=== PATIENT | female | born 1995 | race Caucasian/White ===

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

== ENCOUNTER 2017-09-21 14:09 | Emergency (ER) | payer OTHER ==
[2017-09-21 14:57] VITALS: BP 116/77
--- NOTE | 2017-09-21 15:05 | UC ---
Complaint Female HPI - HPI Summary HPI Summary: 21 y/o female presents to the urgent care c/o itchy vaginal discharge since 09/14. PT reports her PCP RX keflex and Nystatin cream to an UTI and yeast infection. Symptoms did not improve. So he changed ABX for Bactrim PO. She still taking it. However, symptoms still present and vaginal discharge has worsen with a lot itchiness and mild pelvic pain. Pt denies fever, lower back pain, abdominal pain, N/V/D, hematuria. LMP: 09/02/2017 with regular menstrual cycles. - History Of Current Complaint Chief Complaint: UCGU Stated Complaint: PERSONAL Time Seen by Provider: 09/21/17 14:50 Hx Obtained From: Patient Hx Last Menstrual Period: 09/02/17 ?: No Onset/Duration: Gradual Onset, Lasting Weeks, Still Present, Worse Since - 3 days Timing: Constant Severity Initially: Mild Severity Currently: Moderate Pain Intensity: 5 Pain Scale Used: 0-10 Numeric Character: Burning Aggravating Factor(s): Urination Alleviating Factor(s): Nothing Associated Signs And Symptoms: Positive: Vaginal Discharge. Negative: Fever, Back Pain, Genital Swelling, Genital Blisters Related Hx: - 0, Para - 0 - Risk Factors Ectopic Risk Factor: Negative Ovarian Torsion Risk Factor: Negative, Reproductive Age - Allergies/Home Medications Allergies/Adverse Reactions: Allergies Allergy/AdvReac Type Severity Reaction Status Date / Time No Known Allergies Allergy Verified 09/21/17 14:57 Home Medications: Home Medications Sulfamethox/Trimethoprim DS* [Bactrim DS 800/160 TAB*] 1 tab PO BID 09/21/17 [ History Confirmed 09/21/17] PMH/Surg Hx/FS Hx/Imm Hx Previously Healthy: Yes Respiratory History: Asthma - Surgical History Surgical History: Yes Surgery Procedure, Year, and Place: EAR TUBES X3. left knee 2016 - Family History Known Family History: Positive: Diabetes - Social History Occupation: Employed Full-time Lives: With Family Alcohol Use: None Substance Use Type: None Smoking Status (MU): Never Smoked Tobacco - Immunization History Most Recent Influenza Vaccination: n/a Vaccination Up to Date: Yes Review of Systems Constitutional: Negative Skin: Negative Eyes: Negative ENT: Negative Respiratory: Negative Cardiovascular: Negative Gastrointestinal: Negative Genitourinary: Dysuria, Frequency, Vaginal/Penile Itching, Vaginal/Penile Discharge, Other - mild pelvic pain Motor: Negative Neurovascular: Negative Musculoskeletal: Negative Neurological: Negative Psychological: Negative Is Patient Immunocompromised?: No All Other Systems Reviewed And Are Negative: Yes Physical Exam Triage Information Reviewed: Yes Vital Signs: Initial Vital Signs Temp 98.8 F 09/21/17 14:48 Pulse 86 09/21/17 14:48 Resp 18 09/21/17 14:48 BP 116/77 09/21/17 14:48 Pulse Ox 100 09/21/17 14:48 - Additional Comments Vital signs: reviewed General:well developed, well nourished female sitting in the examining table w/ o any aparent distress. Head: Normocephalic, no lesions. Eyes: PERRLA, EOM's full, conjunctiva clear, fundi grossly normal. Ears: EAC's clear, TM's normal. Nose: Mucosa normal, no obstruction. Throat: Clear, no exudates, no lesions. Neck: Supple, no masses, no thyromegaly, no bruits. Chest: Lungs clear, no rales, no rhonchi, no wheezes. Heart: RR, no murmurs, no rubs, no gallops. Abdomen: Soft, no tenderness, no masses, BS normal. : Normal, no lesions, no discharge, no hernias noted. Pelvic: I was assited by Nurse Pippa. External genitalia within normal limits. There is no lesions there is no masses noted. Speculum exam: The vaginal sherstha are within normal limits w/ moderate white creamy vaginal discharge, no the lesions or rashes. The cervix is closed with no lesions or masses. There is no CMT's, and no adnexal masses. Sample sent Lab for affirm and G/C and trichomonas Rectal: No lesions, no hemorrhoids, Back: Normal curvature, no tenderness. Extremities: FROM, no deformities, no edema, no erythema. Neuro: Physiological, no localizing findings. Skin: Normal, no rashes, no lesions noted. Complaint Female Dx - Course Course Of Treatment: 21 y/o female presents to the urgent care c/o itchy vaginal discharge since 09/14/2017. PT reports her PCP RX keflex and Nystatin cream to an UTI and yeast infection. Symptoms did not improve. So he changed ABX for Bactrim PO. She still taking it. However, symptoms still present and vaginal discharge has worsen with a lot itchiness and mild pelvic pain. Pt denies fever, lower back pain, abdominal pain, N/V/D, hematuria. LMP: 09/02/2017 with regular menstrual cycles.Hx obtained. Pt with Bacterial vaginosis and Vulvovaginal candidiasis pelvic examination. Pt Rx Metronidazole vaginal cream and Fluconazole PO . UA ordered, result:trace leukoesteraces. test: negative. Pt educated on STD's. Advised to f/u with THREAD PULLING MACHINE ATTENDANT for PAP. Specimen were sent to lab to r/o affirm, VALENTINO/belen adboo trichomonas, Advised she will be notified if any abnormal result from lab. Pt understood and agreed with plan of care. - Differential Dx/Diagnosis Differential Diagnosis/HQI/PQRI: Cervicitis, Pelvic Inflammatory Disease, Sexually Transmitted Disease, Ureteral Stone, Urinary Tract Infection, Other - vaginosis Provider Diagnoses: 1- Bacterial vaginosis. 2-Vulvo vaginal candidiasis. 3- Screening for STD's Discharge - Discharge Plan Condition: Stable Disposition: HOME Prescriptions: Fluconazole 150 MG (NF) [Diflucan 150 mg (NF)] 150 mg PO ONCE #1 tab metroNIDAZOLE VAGINAL 0.75%* 1 applic VAGINAL BEDTIME #1 verna Patient Education Materials: Bacterial Vaginosis (ED), Yeast Infection (ED) Referrals: Lorenzo Fishman MD [Primary Care Provider] - 3 Days Additional Instructions: 1-Please f/u with THREAD PULLING MACHINE ATTENDANT or [facility] for a PAP and screening for other STD's 2- Please take medications as directed, and apply Metronidazole vaginal cream as directed 3- Specimen were sent to lab, if anything abnormal you will receive a call from us for further treatment. 4-If not improvement of symptoms please return to the urgent care or f/u with your THREAD PULLING MACHINE ATTENDANT for further treatment
== END 2017-09-21 15:52 | disposition home or self-care (01) ==
LOC: UCCORT 14:09
DX: N76.0 Acute vaginitis (principal); B96.89 Other specified bacterial agents as the cause of diseases classified elsewhere; B37.3 Candidiasis of vulva and vagina; Z11.3 Encounter for screening for infections with a predominantly sexual mode of transmission
CPT/HCPCS: 81003; 84702; 87086; 87480; 87491; 87510; 87591; 87661; 99212; G0463

== ENCOUNTER 2018-03-20 14:00 | Emergency (ER) | payer OTHER ==
[2018-03-20 14:18] VITALS: BP 111/51
--- NOTE | 2018-03-20 14:46 | UC ---
Abdominal Pain Female HPI - HPI Summary HPI Summary: Pt presents with c/o LIN, fatigue and lower abdomen cramping that began yesterday but has since improved. Pt is 25 weeks . denies, vaginal bleeding, fever, chills, nausea or vomiting. Pt states she has not been "drinking enough liquids" - History of Current Complaint Chief Complaint: UCGeneralIllness Stated Complaint: CRAMPING,LIN Time Seen by Provider: 03/20/18 14:13 Hx Obtained From: Patient Hx Last Menstrual Period: 09/02/17 ?: Yes - 25 weeks Onset/Duration: Gradual Onset, Lasting Days, Still Present Severity Initially: Mild Severity Currently: Mild Pain Intensity: 3 Location: Suprapubic Radiates: No Character: Cramping Aggravating Factor(s): Nothing Alleviating Factor(s): Other: - rest Associated Signs and Symptoms: Positive: Negative - Risk Factors Ectopic Risk Factor: Negative Ovarian Torsion Risk Factor: Reproductive Age Allergies/Adverse Reactions: Allergies Allergy/AdvReac Type Severity Reaction Status Date / Time No Known Allergies Allergy Verified 03/20/18 14:11 Home Medications: Home Medications Ibuprofen TAB* [Advil TAB*] 600 mg PO Q6H PRN 03/20/18 [History Confirmed ] PMH/Surg Hx/FS Hx/Imm Hx Previously Healthy: Yes - Surgical History Surgical History: Yes Surgery Procedure, Year, and Place: EAR TUBES X3. left knee 2016 - Family History Known Family History: Positive: Cardiac Disease, Diabetes - Social History Occupation: Employed Full-time Lives: With Family Alcohol Use: None Substance Use Type: None Smoking Status (MU): Never Smoked Tobacco Have You Smoked in the Last Year: No - Immunization History Most Recent Influenza Vaccination: n/a Vaccination Up to Date: Yes Review of Systems Constitutional: Fatigue Skin: Negative Eyes: Negative ENT: Negative Respiratory: Negative Cardiovascular: Negative Gastrointestinal: Abdominal Pain Genitourinary: Negative Motor: Negative Neurovascular: Negative Musculoskeletal: Negative Neurological: Headache Psychological: Negative Is Patient Immunocompromised?: No All Other Systems Reviewed And Are Negative: Yes Physical Exam Triage Information Reviewed: Yes Appearance: Well-Appearing Vital Signs: Initial Vital Signs Temp 99.3 F 03/20/18 14:12 Pulse 94 03/20/18 14:12 Resp 16 03/20/18 14:12 BP 111/51 03/20/18 14:12 Pulse Ox 100 03/20/18 14:12 Vital Signs Reviewed: Yes Eye Exam: Normal Eyes: Positive: Other: - PERRLA ENT Exam: Normal Dental Exam: Normal Neck exam: Normal Respiratory Exam: Normal Respiratory: Positive: No respiratory distress Cardiovascular Exam: Normal Abdomen Description: Positive: Nontender, Other: - heart tones, 149 Musculoskeletal Exam: Normal Neurological Exam: Normal Psychological Exam: Normal Skin Exam: Normal Abd Pain Female Course/Dx - Course Course Of Treatment: I discussed with the patient the need to stay adequately hydrated during . Pt verbalized understanding and agreed to plan of care. - Differential Dx/Diagnosis Differential Diagnosis: , Urinary Tract Infection Provider Diagnoses: -mild dehydration. ear ache. abdomen pain Discharge - Sign-Out/Discharge Documenting (check all that apply): Patient Departure - Discharge Plan Condition: Stable Disposition: HOME Patient Education Materials: Acute Headache (ED), Earache (ED), Abdominal Pain in (ED) Forms: *Gen. Provider Communication Referrals: Yolanda Chowdhury CNM [Certified Nurse Poured Wall Foreman] - If Needed No Primary Care Phys,NOPCP [Primary Care Provider] - - Billing Disposition and Condition Condition: STABLE Disposition: Home
== END 2018-03-20 15:04 | disposition home or self-care (01) ==
LOC: UCCORT 14:00
DX: O26.892 Other specified pregnancy related conditions, second trimester (principal); Z3A.25 25 weeks gestation of pregnancy; E86.0 Dehydration; H92.09 Otalgia, unspecified ear; R10.9 Unspecified abdominal pain
CPT/HCPCS: 81003; 87086; 99212; G0463

== ENCOUNTER 2018-07-03 03:13 | Inpatient (IN) | payer OTHER ==
[2018-07-03] MEDS ORDERED: Nalbuphine* 10 MG/ML 1 ML VIAL IM PRN ×2 (04:31→22:53)
[2018-07-03] MEDS ORDERED: Promethazine INJ(RESTRICTED)* 25 MG/ML 1 ML VIAL IM PRN ×2 (04:31→22:53)
[2018-07-03 06:50] LABS: Urine Appearance Clear; Urine Blood 1+ (Negative); Urine Color Colorless; Urine Ketones Negative (Negative); Urine Protein Negative (Negative); Urine Red Blood Cell Trace(0-2/hpf) (Absent); Urine Specific Gravity 1.002 (1.010-1.030); Urine Urobilinogen Negative (Negative); Urine White Blood Cell Trace(0-5/hpf) (Absent)
[2018-07-03] MEDS ORDERED: Oxytocin in LR* 20 UNITS/1,000 ML BAG IVPB ONE (10:29)
[2018-07-03 10:50] LABS: ABS Basophils 0 10^3/ul (0-0.2); ABS Eosinophils 0 10^3/ul (0-0.6); ABS Lymphocytes 1.3 10^3/ul (1.0-4.8); ABS Monocytes 0.5 10^3/ul (0-0.8); ABS Nucleated RBC 0 10^3/ul; Eosinophil % 0.6 % (0-6); Hematocrit 33 % (35-47); Hemoglobin 10.9 g/dl (12.0-16.0); Lymphocyte % 19.1 % (25-47); Mean Corpuscular HGB Conc 33 g/dl (31-36); Mean Corpuscular Hemoglobin 28 pg (27-31); Mean Corpuscular Volume 86 fL (80-97); Mean Platelet Volume 9.3 fL (7.4-10.4); Nucleated Red Blood Cells % 0; Platelet Count 191 10^3/ul (150-450); Red Blood Count 3.84 10^6/ul (4.00-5.40); Red Cell Distribution Width 16 % (10.5-15); White Blood Count 6.9 10^3/ul (3.5-10.8)
--- NOTE | 2018-07-03 11:47 | HP ---
General Information - Reason for Visit Here in early labor - General Information Maternal Age: 22 Grav: 1 Para: 0 SAB: 0 IEA: 0 Estimated Due Date: 07/05/18 Determined By: LMP Maternal Blood Type and Rh: O Positive - Results this Serology/RPR Result: Non-Reactive Rubella Result: Immune HBsAg Result: Negative HIV Result: Negative GBS Culture Result: Negative Past Medical History Delivery History: See Records Delivery History Comment: No previous pregnancies Pertinent Past Medical History: See Records Past Medical History Comment: Depression/anxiety Sponge kidney dz--inc risk UTIs, stones. Followed by urologist asthma migraine Pertinent Past Surgical History: See Records Past Surgical History Comment: left knee arthroscopy 2016 Pertinent Family History: See Records Family History Comment: Maternal hx breast Ca Prostrate ca kidney ca pancreatic ca autism - Antepartal Records Antepartal Records: Reviewed, Complicated by: - CF carrier, FOB not tested Review of Systems Constitutional: Uncomfortable CV Complaint: No Respiratory: Shortness of Breath: No Gastrointestinal: No Nausea/Vomiting, Soft Stool Genitourinary: No Dysuria, No Leaking Fluid, Spotting Musculoskeletal: Contractions Neurological: No Headache, No Visual Changes Movement: Normal Exam Allergies/Adverse Reactions: Allergies No Known Allergies Allergy (Verified 03/20/18 14:11) BP 119/65 HR 91 afebrile Lab Values - Entire Visit: Laboratory Tests 07/03/18 07/03/18 07/03/18 06:24 10:10 10:10 WBC 6.9 RBC 3.84 L Hgb 10.9 L Hct 33 L MCV 86 MCH 28 MCHC 33 RDW 16 H Plt Count 191 MPV 9.3 Neut % (Auto) 72.4 Lymph % (Auto) 19.1 L [place] % (Auto) 7.7 H Eos % (Auto) 0.6 Baso % (Auto) 0.2 Absolute Neuts (auto) 5.0 Absolute Lymphs (auto) 1.3 Absolute Monos (auto) 0.5 Absolute Eos (auto) 0 Absolute Basos (auto) 0 Absolute Nucleated RBC 0 Nucleated RBC % 0 Urine Color Colorless Urine Appearance Clear Urine pH 7.0 Ur Specific [place] 1.002 L Urine Protein Negative Urine Ketones Negative Urine Blood 1+ A Urine Nitrate Negative Urine Bilirubin Negative Urine Urobilinogen Negative Ur Leukocyte Esterase Negative Urine WBC (Auto) Trace(0-5/hpf) Urine RBC (Auto) Trace(0-2/hpf) Ur Squamous Epith Cells Present A Urine Bacteria Absent Urine Glucose Negative Blood Type O Positive Antibody Screen Negative - Measurements Height: 5 ft 6 in Weight: 220 lb Weight in lbs: [phone] Body Mass Index (BMI): 35.5 Pre- Weight: 201 lb Weight Gained This : 19 lbs and 0 ozs - Exam Breast: Breast Exam Deferred CVA: No CVA Tenderness Extremities: No Edema Heart: Normal Rhythm/Heart Sounds HEENT: No Significant Findings Lungs: Clear Bilaterally Rectal: Rectal Exam Deferred Reflexes: DTR 2+, - - no clonus Thyroid: - - WNL @ entry to care - Abdominal Exam Abdomen Exam: Non-Tender, Fundal Height Consistent with Dates - Ultrasound/Biophysical Profile Ultrasound Status: Not Done Targeted Exam Findings See L&D Outpatient Visit Provider Note for Findings: Yes Estimated Weight: 7.5lb Cervical Exam: 2cm Effacement: 80% Station: -1 Presenting Part: Vertex Membrane Status: Intact Bleeding/Discharge: Bloody Show EFM Findings - External Monitor Findings Baseline Heart Rate: 130 External Monitor Findings: Accelerations Present, No Pattern of Variable or Late Decelerations, Variability Moderate Contractions: Regular, Moderate, 45-90 Seconds Contraction Frequency: Q 4-5 min Assessment/Plan - Assessment IUP @ 39+5 weeks gestation in early labor. IBOW. No evidence acidemia - Plan Plan: Admit - Anticipate Vaginal Delivery Plan Comment: Admit to L&D from outpatient status. Discussed options to consider therapeutic rest given previous night of slow-progressing active labor and little rest. Also discussed option to return home and await more active labor vs augment labor with pitocin. Questions answered and patient opts for low-dose pitocin augmentation. May consider pain management options as labor progresses including hydrotherapy, nitrous, epidural as desired. Anticipate SVB. - Date/Time of Admission Date of Admission: 07/03/18 Time of Admission: 10:00
[2018-07-03] MEDS: Promethazine INJ(RESTRICTED)* 25 MG/ML 1 ML VIAL IV PRN ×2 (13:37→21:52)
[2018-07-03] MEDS: Nalbuphine* 10 MG/ML 1 ML VIAL IV PRN ×2 (13:37→21:52)
[2018-07-03] MEDS: Oxytocin in LR* 20 UNITS/1,000 ML BAG IVPB SCH ×2 (19:15→20:05)
[2018-07-03] MEDS ORDERED: OBEPIDURAL* 0 ML EPIDURAL ONE (20:42)
[2018-07-04] MEDS: Promethazine INJ(RESTRICTED)* 25 MG/ML 1 ML VIAL IV PRN (04:08)
[2018-07-04] MEDS: Nalbuphine* 10 MG/ML 1 ML VIAL IV PRN (04:08)
[2018-07-04] MEDS ORDERED: Dibucaine 1% 28.35 GM TUBE PR PRN (07:28)
[2018-07-04] MEDS ORDERED: Glycerin ADULT SUPP PR PRN (07:28)
[2018-07-04] MEDS ORDERED: Witch Hazel PAD* JAR TOPICAL PRN (07:28)
--- NOTE | 2018-07-04 07:50 | PROCNOTE ---
[facility] OB: Delivery Note - Nursery Level of Nursery: Regular/Bedside - Perineum Perineal Injury: Perineal Laceration, 1st Degree Perineal Injury Comment: Left labial--repaired Perineal Repair: By Delivering Practioner - Events Delivery Events of Note: Pitocin During Labor, Pitocin Only After Delivery Delivery Events of Note Comment: Delivered by RN - Additional Delivery Notes Additional Delivery Notes: Patient admitted after prodromal labor for therapeutic rest then augmentation of labor. After initiation of pitocin, patient desired epidural. Anesthesiologist declined to place epidural due to rash on back and concern for introducing infectious agent into epidural space if rash infectious in origin. Pitocin turned off, patient opted for therapeutic rest after trying nitrous with poor effect. Progressed to complete without augmentation with urge to push. Baby delivered by RN because this provider assisting in OR. Delivered to maternal abdomen @ 0635 with spontaneous cry, Apgars 8,9. Meat Stuffer at doorside (patient requested he not be in room due to desire to not have male staff/providers present). Cord clamped and cut. Placenta delivered by earth moving technician @ 0643 with gentle cord traction. Fundus firm with pitocin infusing. EBL 350ml. Baby at breast to initiate .
[2018-07-04] MEDS ORDERED: Oxytocin in LR* 20 UNITS/1,000 ML BAG IVPB SCH (08:00)
[2018-07-04] MEDS: Ibuprofen TAB* 600 MG PO PRN ×3 (11:08→21:55)
[2018-07-04] MEDS: Acetaminophen TAB* 325 MG PO PRN ×2 (13:18→17:14)
[2018-07-04] MEDS: Docusate CAP* 100 MG PO SCH ×3 (13:18→21:55)
[2018-07-04] MEDS: Sertraline* 50 MG TAB PO SCH (21:55)
[2018-07-05] MEDS: Acetaminophen TAB* 325 MG PO PRN ×4 (02:03→20:04)
[2018-07-05] MEDS: Ibuprofen TAB* 600 MG PO PRN ×3 (04:37→17:50)
[2018-07-05 06:10] LABS: ABS Basophils 0 10^3/ul (0-0.2); ABS Eosinophils 0.1 10^3/ul (0-0.6); ABS Monocytes 0.6 10^3/ul (0-0.8); ABS Neutrophils 5.1 10^3/ul (1.5-7.7); ABS Nucleated RBC 0 10^3/ul; Eosinophil % 0.9 % (0-6); Hematocrit 27 % (35-47); Lymphocyte % 25.5 % (25-47); Mean Corpuscular HGB Conc 34 g/dl (31-36); Mean Corpuscular Hemoglobin 28 pg (27-31); Mean Corpuscular Volume 84 fL (80-97); Mean Platelet Volume 8.7 fL (7.4-10.4); Nucleated Red Blood Cells % 0.1; Platelet Count 141 10^3/ul (150-450); Red Blood Count 3.17 10^6/ul (4.00-5.40); Red Cell Distribution Width 16 % (10.5-15); White Blood Count 7.8 10^3/ul (3.5-10.8)
[2018-07-05] MEDS: Docusate CAP* 100 MG PO SCH ×3 (08:27→20:03)
[2018-07-05] MEDS: Ferrous Gluconate TAB* 324 MG TAB PO SCH ×2 (08:27→20:03)
[2018-07-05] MEDS: Sertraline* 50 MG TAB PO SCH (22:43)
[2018-07-06] MEDS: Ferrous Gluconate TAB* 324 MG TAB PO SCH (09:03)
[2018-07-06] MEDS: Docusate CAP* 100 MG PO SCH (09:03)
[2018-07-06] MEDS: Ibuprofen TAB* 600 MG PO PRN (09:05)
[2018-07-06 09:23] VITALS: BP 133/66
== END 2018-07-06 13:06 | disposition home or self-care (01) | DRG 560 ==
LOC: MCHOBOUT 03:13 → MCHOB 09:48
PROVIDERS: ADMIT Midwife; ATTEND Midwife
PROC: 10E0XZZ Delivery of Products of Conception, External Approach (ICD-10-PCS; principal; 2018-07-04)
PROC: 4A1HXCZ Monitoring of Products of Conception, Cardiac Rate, External Approach (ICD-10-PCS; 2018-07-04)
PROC: 0HQ9XZZ Repair Perineum Skin, External Approach (ICD-10-PCS; 2018-07-04)
PROC: 0UQMXZZ Repair Vulva, External Approach (ICD-10-PCS; 2018-07-04)
DX: O99.344 Other mental disorders complicating childbirth (principal); Q61.5 Medullary cystic kidney; Z37.0 Single live birth; O70.0 First degree perineal laceration during delivery; F32.9 Major depressive disorder, single episode, unspecified; O90.81 Anemia of the puerperium; Z3A.39 39 weeks gestation of pregnancy; F41.9 Anxiety disorder, unspecified; Z14.1 Cystic fibrosis carrier; R21 Rash and other nonspecific skin eruption; O75.89 Other specified complications of labor and delivery
CPT/HCPCS: 36415; 81003; 81015; 85025; 86850; 86900; 86901; 87086; A9270-GY; J2300; J2550